=== PATIENT | female | born 1960 | race Caucasian/White ===

== ENCOUNTER 2017-08-16 14:43 | Emergency (ER) | payer BC ==
[2017-08-16 14:55] VITALS: RESP 18; TEMP 97.9
--- NOTE | 2017-08-16 15:05 | EDPHY ---
H & P Time Seen by Provider: 08/16/17 14:59 HPI/ROS: CHIEF COMPLAINT: Rib pain after ski accident HISTORY OF PRESENT ILLNESS: This patient is a 56 year old female arriving via EMS complaining of right- sided rib pain and shortness of breath secondary to a fall while skiing today around 13:00, two hours prior to arrival. She was a helmeted skier at [employer] and fell forward onto her right side. She remembers striking her ribcage with her elbow. She states she did hit her head, but was helmeted and she denies any headache, neck pain, confusion, loss of consciousness, or nausea. Initially, she had considerable pain and was unable to catch her breath. She has history of asthma and used her inhaler after the incident, but this did not relieve her difficulty breathing. Currently, she feels her breathing has improved but she continues to experience increased pain in her right side with deep inspiration. The patient denies abdominal pain, pelvic pain, extremity pain or any further trauma or complaints at this time. REVIEW OF SYSTEMS: A 10 point review of systems was performed and is negative with the exception of the elements mentioned in the history of present illness. Past Medical/Surgical History: Asthma. Social History: Friend at bedside. . Nonsmoker. Visiting from [place] Smoking Status: Never smoked Physical Exam: General Appearance: Alert, no distress Head: Atraumatic Eyes: No conjunctival erythema, PERRLA, EOMI ENT, Mouth: No hemotympanum, no oral trauma, no bony tenderness Neck: Non-tender, full range of motion without pain Respiratory: Tenderness over the right posterior ribs and lower right anterior ribs. Lungs clear bilaterally Cardiovascular: Regular rate and rhythm Abdomen: Abdomen is soft and non tender Skin: No lacerations, no abrasions Back: No midline T/L/S tenderness Extremities: Pelvis is stable and nontender; no extremity tenderness or deformity, full range of motion without pain Neurological: A&Ox3, normal motor function, normal sensory exam, cranial nerves intact Psychiatric: Mood and affect normal Constitutional: Initial Vital Signs Temperature (C) 36.6 C 08/16/17 14:53 Heart Rate 100 08/16/17 14:53 Respiratory Rate 18 08/16/17 14:53 Blood Pressure 144/89 H 08/16/17 14:53 O2 Sat (%) 89 L 08/16/17 14:53 O2 Delivery Mode Room Air Allergies/Adverse Reactions: acetaminophen [From Lortab] Allergy (Verified 08/16/17 14:55) hydrocodone Allergy (Verified 08/16/17 14:55) levofloxacin [From Levaquin] Allergy (Verified 08/16/17 14:55) meperidine [From Demerol] Allergy (Verified 08/16/17 14:55) Home Medications: Medication Instructions Recorded oxyCODONE/APAP 5/325 [Percocet 1 tab PO Q4 PRN #15 tab 08/16/17 5/325 (*)] Medical Decision Making - Diagnostics Imaging Results: Imaging Impressions Chest X-Ray 08/16/17 14:59 Impression: 1. A few bands of subsegmental atelectasis are suspected at the left lung base. 2. No acute abnormality seen about the chest. Chest CT 08/16/17 15:53 Impression: 1. Nondisplaced fractures of the right fifth through seventh ribs. 2. Otherwise normal exam. Findings and recommendations discussed with DAWN ATKINSON at 5:17 PM hour, 05/2018. Imaging: I viewed and interpreted images myself ED Course/Re-evaluation: 56 y/o female presents with right rib pain secondary to a fall two hours ship [employer]. Exam reveals tenderness to the right ribs, primarily posteriorly and to the lower anterior ribs. No abdominal tenderness. Plan for chest x-ray. IV established. Plan for labs including CBC, chemistries, UA. Plan to administer 1L IVF. 15:53 Reviewed chest x-ray. No fracture noted. No pneumothorax or other acute processes. Plan for CT chest for further evaluation due to patient presentation. Plan to administer 2mg IV morphine for pain relief prior to CT. 17:[address] Campbell, radiologist. CT chest shows right-sided rib fractures 5-7. 17:20 Reassessed patient. Discussed imaging results. Plan to d/c home in good condition with incentive spirometer. Plan to administer 15mg IV Toradol for pain relief. Follow up and return precautions discussed. She is comfortable with this plan. The patient has had low oxygen saturations in the upper 80s on room air. I offered and strongly recommended admission, but the patient declines at this time. She is a competent decision-maker. Plan to observe and monitor. 19:05 Reassessed patient. She is feeling better and continues to decline admission. SpO2 91-93% on room air during ambulation. Plan to d/c home in good condition as above with prescription for Percocet for pain control. She will also use lidocaine patches as needed for pain. Differential Diagnosis: Differential diagnosis includes though it is not limited to fracture, intracranial hemorrhage, pneumothorax, hemothorax, intra-abdominal hemorrhage. - Data Points Laboratory Results: Laboratory Results 08/16/17 17:12 08/16/17 17:12 08/16/17 08/16/17 08/16/17 17:12 17:12 16:50 WBC 8.16 10^3/uL 10^3/uL (3.80-9.50) RBC 3.49 10^6/uL L 10^6/uL (4.18-5.33) Hgb 10.6 g/dL L g/dL (12.6-16.3) POC Hgb Hct 31.8 % L % (38.0-47.0) POC Hct MCV 91.1 fL fL (81.5-99.8) MCH 30.4 pg pg (27.9-34.1) MCHC 33.3 g/dL g/dL (32.4-36.7) RDW 14.5 % % (11.5-15.2) Plt Count 128 10^3/uL L 10^3/uL (150-400) MPV 8.9 fL fL (8.7-11.7) Neut % (Auto) 78.0 % H % (39.3-74.2) Lymph % (Auto) 14.0 % L % (15.0-45.0) [place] % (Auto) 5.9 % % (4.5-13.0) Eos % (Auto) 1.2 % % (0.6-7.6) Baso % (Auto) 0.4 % % (0.3-1.7) Nucleat RBC Rel Count 0.0 % % (0.0-0.2) Absolute Neuts (auto) 6.37 10^3/uL 10^3/uL (1.70-6.50) Absolute Lymphs (auto) 1.14 10^3/uL 10^3/uL (1.00-3.00) Absolute Monos (auto) 0.48 10^3/uL 10^3/uL (0.30-0.80) Absolute Eos (auto) 0.10 10^3/uL 10^3/uL (0.03-0.40) Absolute Basos (auto) 0.03 10^3/uL 10^3/uL (0.02-0.10) Absolute Nucleated RBC 0.00 10^3/uL 10^3/uL (0-0.01) Immature Gran % 0.5 % % (0.0-1.1) Immature Gran # 0.04 10^3/uL 10^3/uL (0.00-0.10) POC Sodium Sodium 138 mEq/L mEq/L (135-145) POC Potassium Potassium 4.0 mEq/L mEq/L (3.5-5.2) POC Chloride Chloride 106 mEq/L mEq/L (97-110) Carbon Dioxide 22 mEq/l mEq/l (22-31) Anion Gap 10 mEq/L mEq/L (8-16) POC BUN BUN 19 mg/dL mg/dL (7-23) Creatinine 0.5 mg/dL L mg/dL (0.6-1.0) POC Creatinine Estimated GFR > 60 Glucose 86 mg/dL mg/dL (70-100) POC Glucose Calcium 8.4 mg/dL L mg/dL (8.5-10.4) Urine Color YELLOW Urine Appearance CLEAR Urine pH 5.0 (5.0-7.5) Ur Specific [place] 1.016 (1.002-1.030) Urine Protein NEGATIVE (NEGATIVE) Urine Ketones NEGATIVE (NEGATIVE) Urine Blood 1+ H (NEGATIVE) Urine Nitrate NEGATIVE (NEGATIVE) Urine Bilirubin NEGATIVE (NEGATIVE) Urine Urobilinogen NEGATIVE EU EU (0.2-1.0) Ur Leukocyte Esterase TRACE H (NEGATIVE) Urine RBC 1-3 /hpf /hpf (0-3) Urine WBC 5-10 /hpf H /hpf (0-3) Ur Epithelial Cells TRACE /lpf /lpf (NONE-1+) Urine Mucus TRACE /lpf /lpf (NONE-1+) Urine Glucose NEGATIVE (NEGATIVE) 08/16/17 16:08 WBC RBC Hgb POC Hgb 9.5 gm/dL L gm/dL (12.6-16.3) Hct POC Hct 28 % L % (38-47) MCV MCH MCHC RDW Plt Count MPV Neut % (Auto) Lymph % (Auto) [place] % (Auto) Eos % (Auto) Baso % (Auto) Nucleat RBC Rel Count Absolute Neuts (auto) Absolute Lymphs (auto) Absolute Monos (auto) Absolute Eos (auto) Absolute Basos (auto) Absolute Nucleated RBC Immature Gran % Immature Gran # POC Sodium 144 mEq/L mEq/L (135-145) Sodium POC Potassium 4.3 mEq/L mEq/L (3.3-5.0) Potassium POC Chloride 116 mEq/L H mEq/L (97-110) Chloride Carbon Dioxide Anion Gap POC BUN 20 mg/dL mg/dL (7-23) BUN Creatinine POC Creatinine 0.3 mg/dL L mg/dL (0.6-1.0) Estimated GFR Glucose POC Glucose 81 mg/dL mg/dL (70-100) Calcium Urine Color Urine Appearance Urine pH Ur Specific [place] Urine Protein Urine Ketones Urine Blood Urine Nitrate Urine Bilirubin Urine Urobilinogen Ur Leukocyte Esterase Urine RBC Urine WBC Ur Epithelial Cells Urine Mucus Urine Glucose Medications Given: Discontinued Medications Sodium Chloride (Ns) 1,000 mls @ 0 mls/hr IV ONCE ONE; Wide Open PRN Reason: Protocol Stop: 08/16/17 16:00 Last Admin: 08/16/17 16:06 Dose: 1,000 mls Ketorolac Tromethamine (Toradol) 15 mg IVP EDNOW ONE Stop: 08/16/17 17:19 Last Admin: 08/16/17 17:38 Dose: 15 mg Miscellaneous Medication (Icy Hot Lidocaine/Menthol 4%/1% Patch) 1 patch TD EDNOW ONE Stop: 08/16/17 19:08 Last Admin: 08/16/17 19:11 Dose: 1 patch Morphine Sulfate (Morphine) 2 mg IVP EDNOW ONE Stop: 08/16/17 16:26 Last Admin: 08/16/17 16:27 Dose: 2 mg Morphine Sulfate (Morphine) 2 mg IVP EDNOW ONE Stop: 08/16/17 16:37 Last Admin: 08/16/17 16:38 Dose: 2 mg Oxycodone/Acetaminophen (Percocet 5/325) 1 tab PO EDNOW ONE Stop: 08/16/17 17:33 Last Admin: 08/16/17 17:38 Dose: 1 tab Point of Care Test Results: 08/16/17 16:08 POC Sodium 144 POC Potassium 4.3 POC Chloride 116 H POC BUN 20 POC Creatinine 0.3 L POC Glucose 81 Departure - Departure Disposition: Home, Routine, Self-Care Clinical Impression: Right rib fracture Qualifiers: Encounter type: initial encounter Rib fracture type: multiple ribs Fracture type: closed Qualified Code(s): S22.41XA - Multiple fractures of ribs, right side, initial encounter for closed fracture Condition: Good Instructions: Rib Fracture (ED) Additional Instructions: 1. Follow up with your primary care provider this week for reevaluation. 2. Use incentive spirometer as directed several times daily. 3. Return to the emergency department for fever, worsening pain, shortness of breath or difficulty breathing, abdominal pain, blood in urine or other concerns. 4. Take Tylenol or ibuprofen as directed below as needed for pain. If pain is severe, these medications may be alternated every three hours. 5. Take Percocet as prescribed as needed for severe pain. Note that you cannot take this medication with Tylenol as it already contains acetaminophen. 6. You may also use lidocaine patches as directed as needed for pain. Adult Pain & Fever Control: We recommend Acetaminophen (Tylenol) and Ibuprofen (Motrin,Advil) for pain and fever control. When fever is high or pain severe, both drugs can be used at the same time, but at different intervals. Please note the time differences. Your dose is: Acetaminophen 650mg every 4 to 6 hours Ibuprofen 600mg every 6-8 hours with food Note: do not take Acetaminophen with Hydrocodone (Vicodin, Lortab) or Oxycodone (Percocet). These medications also contain Acetaminophen. No more than 3000mg of Acetaminophen should be taken in 24 hours (for an adult). Referrals: Kim Ordonez MD [[facility] [place] Primary Care Provider] - As per Instructions Prescriptions: oxyCODONE/APAP 5/325 [Percocet 5/325 (*)] 1 tab PO Q4 PRN #15 tab PRN Reason: pain Report Scribed for: Dawn Atkinson Report Scribed by: Negar Luis Date of Report: 08/16/17 Time of Report: 15:05 Physician Review and Approval Statement: 08/16/17 15:05 Portions of this note were transcribed by a medical coder. I personally performed a history, physical exam, medical decision making, and confirmed accuracy of information the transcribed note.
[2017-08-16] MEDS ORDERED: NS 1,000 ML IV ONE (15:59)
[2017-08-16] MEDS ORDERED: IOPAMIDOL (ISOVUE-300) 100 ML BTL ONE (16:30)
[2017-08-16] MEDS ORDERED: KETOROLAC 15 MG/1 ML SDV IVP ONE (17:18)
[2017-08-16 17:20] LABS: PLATELET COUNT 128 10^3/uL (150-400)
[2017-08-16] MEDS ORDERED: OXYCODONE/APAP 5/325 TAB PO ONE (17:32)
[2017-08-16 18:50] VITALS: BP 103/67; PULSE 77; O2SAT 91
[2017-08-16] MEDS ORDERED: LIDOCAINE 4%/MENTHOL 1% PATCH TD ONE (19:07)
[2017-08-16] MEDS ORDERED: PATCH REMOVAL 1 EA PATCH TD SCH (21:00)
== END 2017-08-16 19:15 | disposition home or self-care (01) ==
DX: S22.41XA Multiple fractures of ribs, right side, initial encounter for closed fracture (principal); J45.909 Unspecified asthma, uncomplicated; E86.9 Volume depletion, unspecified; V00.321A Fall from snow-skis, initial encounter; Y92.89 Other specified places as the place of occurrence of the external cause; Y93.23 Activity, snow (alpine) (downhill) skiing, snowboarding, sledding, tobogganing and snow tubing
CPT/HCPCS: 82947-QW; 96374; J1885; J2270; Q9967